=== PATIENT | female | born 1945 | race American Indian/Alaskan Native ===

== ENCOUNTER 2018-11-24 15:10 | Emergency (ER) | payer MEDICARE, MEDICAID ==
[2018-11-24 15:28] VITALS: BP 158/79
--- NOTE | 2018-11-24 17:49 | Emergency Department Report ---
Minor Respiratory - HPI Chief Complaint: Weakness Stated Complaint: SICK Time Seen by Provider: 11/24/18 16:21 Duration: 3 Days Severity: moderate Minor Respiratory: Yes Rhinorrhea, Yes Able to Tolerate Fluids, Yes Cough, No Sore Throat, No Ear Pain, No Sick Contacts, No Hemoptysis, No Chest Pain, No Shortness of Breath, No Fever Other History: Patient states cough is productive of clear sputum. Patient states she also has had some mild body aches. Patient's MAXIMUM TEMPERATURE at home was 100.4. ED Review of Systems ROS: Stated complaint: SICK Other details as noted in HPI Comment: All other systems reviewed and negative ED Past Medical Hx - Past Medical History Hx Hypertension: Yes Hx Diabetes: Yes Hx GERD: Yes Hx Psychiatric Treatment: Yes (depression) Hx COPD: Yes Additional medical history: Bronchitis. Vertigo. hyperlipidemia. osteoarthritis. neuropathy - Surgical History Past Surgical History?: No - Social History Smoking Status: Never Smoker Substance Use Type: None - Medications Home Medications: Home Medications Medication Instructions Recorded Confirmed Last Taken Type AtorvaSTATin [Lipitor] 10 mg PO DAILY 10/12/15 10/12/15 Unknown History Cholecalciferol (Vitamin D3) 2,000 unit PO QDAY 10/12/15 10/12/15 Unknown History [Vitamin D3] Docusate Sodium [Colace] 100 mg PO BID 10/12/15 10/12/15 Unknown History Esomeprazole Magnesium [NexIUM] 20 mg PO BID 10/12/15 10/12/15 Unknown History HYDROcodone/APAP 7.5-325 [[place] 1 each PO Q8HR PRN #10 tablet 10/12/15 Unknown Rx 7.5/325] Lisinopril [Zestril TAB] 40 mg PO QDAY 10/12/15 10/12/15 Unknown History Potassium Chloride 10 meq PO QDAY 10/12/15 10/12/15 Unknown History Sertraline [Zoloft] 50 mg PO QDAY 10/12/15 10/12/15 Unknown History amLODIPine [Norvasc] 10 mg PO DAILY 10/12/15 10/12/15 Unknown History glipiZIDE [glipiZIDE XL] 10 mg PO DAILY 10/12/15 10/12/15 Unknown History hydroCHLOROthiazide [HCTZ] 25 mg PO QDAY 10/12/15 10/12/15 Unknown History raNITIdine HCl [Zantac 300 MG TAB] 300 mg PO QPM 10/12/15 10/12/15 Unknown History ALBUTEROL Inhaler (OR & NICU) 2 puff IH QID PRN #1 inhalation 11/24/18 Unknown Rx [ProAir HFA Inhaler] Azithromycin [Zithromax Z-GHAZAL] 250 mg PO DAILY #6 tablet 11/24/18 Unknown Rx Benzonatate [Tessalon Perles] 100 mg PO Q8HR #10 capsule 11/24/18 Unknown Rx Minor Respiratory Exam - Exam General: Vital signs noted. No distress. Alert and acting appropriately. HEENT: Yes Moist Mucous Membranes, No Pharyngeal Erythema, No Pharyngeal Exudates, No Rhinorrhea, No Conjuctival Injection, No Frontal Tenderness, No Maxillary Tenderness Ear: Neither TM Bulge, Neither TM Erythema, Neither EAC Pain, Neither EAC Discharge Neck: Yes Supple, No Adenopathy Lungs: Yes Good Air Exchange, Yes Ronchi (clears with coughing), No Wheezes, No Stridor, No Cough, No Labored Respirations, No Retractions, No Use of Accessory Muscles, No Other Abnormal Lung Sounds Heart: Yes Regular, No Murmur Abdomen: Yes Normal Bowel Sounds, No Tenderness, No Peritoneal Signs Skin: No Rash, No Edema Neurologic: Alert and oriented, no deficits. Musculoskeletal: Unremarkable. ED Course Vital Signs 11/24/18 15:25 Temperature 98.1 F Pulse Rate 94 H Respiratory 16 Rate Blood Pressure 158/79 O2 Sat by Pulse 95 Oximetry ED Medical Decision Making - Radiology Data Radiology results: image reviewed (CXR wnl except for some bibasilar atelectasis) - Medical Decision Making Because of the patient's smoking history and history of diabetes patient be started on antibiotics and also given Mr. symptomatically. Critical care attestation.: If time is entered above; I have spent that time in minutes in the direct care of this critically ill patient, excluding procedure time. ED Disposition Clinical Impression: Smoking Acute bronchitis Qualifiers: Bronchitis organism: unspecified organism Qualified Code(s): J20.9 - Acute bronchitis, unspecified Disposition: DC-01 TO HOME OR SELFCARE Is pt being admited?: No Does the pt Need Aspirin: No Condition: Stable Instructions: Acute Bronchitis (ED) Referrals: PRIMARY CARE, [Primary Care Provider] - 3-5 Days Time of Disposition: 17:51
--- NOTE | 2018-11-24 18:47 | XRay Report ---
FINAL REPORT EXAM: XR CHEST ROUTINE 2V HISTORY: productive cough TECHNIQUE: 2 view examination of the chest PRIORS: None FINDINGS: Most likely benign calcified granuloma above left CP angle lateral aspect on frontal view. Atherosclerotic change in the thoracic aorta. Degenerative change in the thoracic spine. There is no visible pulmonary consolidation, pleural effusion, or pneumothorax. Cardiac silhouette size is normal without vascular congestion. Small curvilinear scar versus atelectasis in lingula IMPRESSION: Small curvilinear scar versus atelectasis in lingula
== END 2018-11-24 17:59 | disposition home or self-care (01) ==
LOC: ED 15:10
DX: J20.9 Acute bronchitis, unspecified (principal); F17.200 Nicotine dependence, unspecified, uncomplicated; I10 Essential (primary) hypertension; K21.9 Gastro-esophageal reflux disease without esophagitis; J44.9 Chronic obstructive pulmonary disease, unspecified; E11.40 Type 2 diabetes mellitus with diabetic neuropathy, unspecified; E78.5 Hyperlipidemia, unspecified; M19.90 Unspecified osteoarthritis, unspecified site; Z88.1 Allergy status to other antibiotic agents
CPT/HCPCS: 71046; 99283

== ENCOUNTER 2019-08-24 11:06 | Inpatient (IN) | payer MEDICARE ==
--- NOTE | 2019-08-24 11:25 | Event Note ---
ED Screening Note ED Screening Note: substernal CP radiating to the left arm for a week worse at night no SOB +nausea no vomiting dizziness PMHx DM, COPD, GERD, HTN +smoker This initial assessment/diagnostic orders/clinical plan/treatment(s) is/are subject to change based on patients health status, clinical progression and re-assessment by fellow clinical providers in the ED. Further treatment and workup at subsequent clinical providers discretion. Patient/guardian urged not to elope from the ED as their condition may be serious if not clinically assessed and managed. Initial orders include: CP protocol
[2019-08-24 12:05] LABS: Bacteria,Urine 1+ /HPF (Negative); Bilirubin,Urine NEG (Negative); Blood,Urine SM (Negative); Color,Urine Yellow (Yellow); Hyaline Casts,Urine 1 /LPF; Mucus,Urine FEW /HPF; Urobilinogen,Urine < 2.0 mg/dL (<2.0)
[2019-08-24 12:24] LABS: Basophils # (Auto) 0.1 K/mm3 (0.0-0.1); Basophils % (Auto) 0.8 % (0.0-1.8); Eosinophils # (Auto) 0.1 K/mm3 (0.0-0.4); Eosinophils % (Auto) 0.9 % (0.0-4.3); Hematocrit 36.5 % (30.3-42.9); Hemoglobin 12.4 gm/dl (10.1-14.3); Lymphocytes # (Auto) 1.9 K/mm3 (1.2-5.4); Lymphocytes % (Auto) 17.3 % (13.4-35.0); Mean Corpuscular HGB Conc 34 % (30-34); Mean Corpuscular Volume 81 fl (79-97); Monocytes # (Auto) 0.7 K/mm3 (0.0-0.8); Monocytes % (Auto) 6.6 % (0.0-7.3); Platelet Count 259 K/mm3 (140-440); Red Blood Count 4.52 M/mm3 (3.65-5.03); Red Cell Distribution Width 16.3 % (13.2-15.2)
--- NOTE | 2019-08-24 12:29 | XRay Report ---
CHEST 2 VIEWS INDICATION: Chest pain. COMPARISON: 11/24/2018 FINDINGS: Support devices: None. Heart: Within normal limits. Lungs/pleura: No acute air space or interstitial disease. No pneumothorax. Additional findings: None. IMPRESSION: Unremarkable chest films. Signer Name: Brandin Chiang Jr, MD Signed: 08/24/2019 12:24 PM Workstation Name: [id number]
[2019-08-24 12:51] LABS: Alanine Aminotransferase 9 units/L (7-56); Albumin 3.5 g/dL (3.9-5); BUN/Creatinine Ratio 24; Blood Urea Nitrogen 24 mg/dL (7-17); Calcium 9.5 mg/dL (8.4-10.2); Hemolysis Index 8
[2019-08-24] MEDS ORDERED: MORPHINE 4 MG/1 ML INJ IV STA (12:54)
--- NOTE | 2019-08-24 13:04 | Emergency Department Report ---
ED Chest Pain HPI - General Chief Complaint: Chest Pain Stated Complaint: CHESTPAIN/DIZZY Time Seen by Provider: 08/24/19 11:23 Source: patient Mode of arrival: Wheelchair Limitations: No Limitations - History of Present Illness Initial Comments: 73-year-old -Welsh female with a past medical history of Hypertension, depression, hyperlipidemia, diabetes, emphysema presents to emergency department complaining of a 2 week history of mid sternal chest discomfort which occasionally radiates to the left or right chest associated with some recent episodes of shortness of breath and dizziness. She reports no soup was coughing with mucus production over the last few days as well. No fevers, chills, sweats no nausea or vomiting. She reports no chest trauma. Symptoms will worsen when she exerts herself. MD Complaint: chest pain -: Gradual Onset: during rest, during exertion Pain Location: substernal, left chest, right chest Severity scale (0 -10): 10 Quality: tightness, aching Consistency: constant Improves With: nothing Worsens With: exertion, other (she wakes up in the [employer]) Other Symptoms: cough Treatments Prior to Arrival: none - Related Data On Oral Contraceptives: No Home Medications Medication Instructions Recorded Confirmed Last Taken AtorvaSTATin 10 mg PO DAILY 10/12/15 08/24/19 08/24/19 Cholecalciferol (Vitamin D3) 2,000 unit PO QDAY 10/12/15 08/24/19 08/20/19 [Vitamin D3 2,000 UNIT CAP] Docusate Sodium [Colace CAP] 100 mg PO BID 10/12/15 08/24/19 08/23/19 Lisinopril [Zestril TAB] 40 mg PO QDAY 10/12/15 08/24/19 08/24/19 Sertraline [Zoloft] 50 mg PO QDAY 10/12/15 08/24/19 08/23/19 amLODIPine 10 mg PO DAILY 10/12/15 08/24/19 08/24/19 glipiZIDE [glipiZIDE XL] 10 mg PO DAILY 10/12/15 08/24/19 08/24/19 Budesonide/Formoterol Fumarate 10.2 gm IH Q6H 08/24/19 08/24/19 08/23/19 [Symbicort 80-4.5 Mcg Inhaler] Chlorthalidone [Thalitone] 25 mg PO QDAY 08/24/19 08/24/19 08/24/19 Esomeprazole Magnesium [NexIUM] 40 mg PO QDAY 08/24/19 08/24/19 08/23/19 Linagliptin [Tradjenta] 5 mg PO QDAY 08/24/19 08/24/19 08/24/19 Losartan [Cozaar] 100 mg PO QDAY 08/24/19 08/24/19 08/24/19 Previous Rx's Medication Instructions Recorded Last Taken Type ALBUTEROL Inhaler (OR & NICU) 2 puff IH QID PRN #1 inhalation 11/24/18 08/24/19 Rx [ProAir HFA Inhaler] Nicotine [Habitrol] 14 mg TD DAILY #30 patch 08/26/19 Unknown Rx Allergies Allergy/AdvReac Type Severity Reaction Status Date / Time ampicillin AdvReac Itching Verified 10/09/15 19:02 Heart Score - HEART Score History: Moderately suspicious EKG: Non-specific Age: > 65 Risk factors: > 3 risk factors or hx of atherosclerotic disease Troponin: < normal limit HEART Score: 6 ED Review of Systems ROS: Stated complaint: CHESTPAIN/DIZZY Other details as noted in HPI Comment: All other systems reviewed and negative ED Past Medical Hx - Past Medical History Previous Medical History?: Yes Hx Hypertension: Yes Hx Diabetes: Yes Hx GERD: Yes Hx Psychiatric Treatment: Yes (depression) Hx COPD: Yes Additional medical history: Bronchitis. Vertigo. hyperlipidemia. osteoarthritis. neuropathy - Surgical History Past Surgical History?: No - Social History Smoking Status: Current Every Day Smoker Substance Use Type: None - Medications Home Medications: Home Medications Medication Instructions Recorded Confirmed Last Taken Type AtorvaSTATin 10 mg PO DAILY 10/12/15 08/24/19 08/24/19 History Cholecalciferol (Vitamin D3) 2,000 unit PO QDAY 10/12/15 08/24/19 08/20/19 History [Vitamin D3 2,000 UNIT CAP] Docusate Sodium [Colace CAP] 100 mg PO BID 10/12/15 08/24/19 08/23/19 History Lisinopril [Zestril TAB] 40 mg PO QDAY 10/12/15 08/24/19 08/24/19 History Sertraline [Zoloft] 50 mg PO QDAY 10/12/15 08/24/19 08/23/19 History amLODIPine 10 mg PO DAILY 10/12/15 08/24/19 08/24/19 History glipiZIDE [glipiZIDE XL] 10 mg PO DAILY 10/12/15 08/24/19 08/24/19 History ALBUTEROL Inhaler (OR & NICU) 2 puff IH QID PRN #1 inhalation 11/24/18 08/24/19 08/24/19 Rx [ProAir HFA Inhaler] Budesonide/Formoterol Fumarate 10.2 gm IH Q6H 08/24/19 08/24/19 08/23/19 History [Symbicort 80-4.5 Mcg Inhaler] Chlorthalidone [Thalitone] 25 mg PO QDAY 08/24/19 08/24/19 08/24/19 History Esomeprazole Magnesium [NexIUM] 40 mg PO QDAY 08/24/19 08/24/19 08/23/19 History Linagliptin [Tradjenta] 5 mg PO QDAY 08/24/19 08/24/19 08/24/19 History Losartan [Cozaar] 100 mg PO QDAY 08/24/19 08/24/19 08/24/19 History Nicotine [Habitrol] 14 mg TD DAILY #30 patch 08/26/19 Unknown Rx ED Physical Exam - General Limitations: No Limitations General appearance: alert, in no apparent distress - Head Head exam: Present: atraumatic, normocephalic - Eye Eye exam: Present: normal appearance, PERRL, EOMI Pupils: Present: normal accommodation - ENT ENT exam: Present: normal exam, normal orophraynx, mucous membranes moist - Neck Neck exam: Present: normal inspection - Respiratory Respiratory exam: Present: normal lung sounds bilaterally. Absent: respiratory distress, rales, rhonchi, accessory muscle use, decreased breath sounds - Cardiovascular Cardiovascular Exam: Present: regular rate, normal rhythm. Absent: systolic murmur, diastolic murmur, rubs, gallop - GI/Abdominal GI/Abdominal exam: Present: soft, normal bowel sounds. Absent: hypoactive bowel sounds, organomegaly, mass, bruit - Extremities Exam Extremities exam: Present: normal inspection, full ROM - Back Exam Back exam: Present: normal inspection - Neurological Exam Neurological exam: Present: alert, oriented X3, CN II-XII intact, motor sensory deficit - Psychiatric Psychiatric exam: Present: normal affect, normal mood - Skin Skin exam: Present: warm, dry, intact, normal color. Absent: rash ED Course Vital Signs 08/24/19 08/24/19 08/24/19 11:23 12:06 14:29 Temperature 98.0 F Pulse Rate 85 81 68 Respiratory 16 16 20 Rate Blood Pressure 187/87 169/83 Blood Pressure 145/91 [Left] O2 Sat by Pulse 96 96 98 Oximetry 08/24/19 08/24/19 08/24/19 14:30 14:40 14:50 Temperature Pulse Rate 62 72 68 Respiratory 15 23 21 Rate Blood Pressure 169/83 169/83 169/83 Blood Pressure [Left] O2 Sat by Pulse 96 92 97 Oximetry 08/24/19 08/24/19 08/24/19 15:00 15:10 15:20 Temperature Pulse Rate 69 67 72 Respiratory 23 21 16 Rate Blood Pressure 169/83 167/79 167/79 Blood Pressure [Left] O2 Sat by Pulse 96 92 97 Oximetry 08/24/19 08/24/19 08/24/19 15:30 15:40 15:50 Temperature Pulse Rate 69 69 79 Respiratory 13 23 15 Rate Blood Pressure 167/79 167/79 167/79 Blood Pressure [Left] O2 Sat by Pulse 98 96 97 Oximetry 08/24/19 08/24/19 08/24/19 16:04 16:10 16:20 Temperature Pulse Rate 83 85 76 Respiratory 20 16 10 L Rate Blood Pressure 167/79 167/79 167/79 Blood Pressure [Left] O2 Sat by Pulse 89 94 94 Oximetry 08/24/19 08/24/19 08/24/19 16:30 16:40 17:04 Temperature Pulse Rate 74 73 76 Respiratory 15 27 H 29 H Rate Blood Pressure 167/79 167/79 167/79 Blood Pressure [Left] O2 Sat by Pulse 96 97 95 Oximetry 08/24/19 08/24/19 08/24/19 17:10 17:18 17:20 Temperature Pulse Rate 73 76 76 Respiratory 23 16 23 Rate Blood Pressure 167/79 140/82 Blood Pressure 140/82 [Left] O2 Sat by Pulse 95 99 96 Oximetry 08/24/19 08/24/19 08/24/19 17:30 17:40 17:50 Temperature Pulse Rate 74 71 73 Respiratory 25 H 24 17 Rate Blood Pressure 140/82 140/82 140/82 Blood Pressure [Left] O2 Sat by Pulse 96 94 92 Oximetry 08/24/19 08/24/19 08/24/19 18:00 18:10 18:20 Temperature Pulse Rate 76 74 81 Respiratory 26 H 25 H 16 Rate Blood Pressure 140/82 158/83 158/83 Blood Pressure [Left] O2 Sat by Pulse 96 96 98 Oximetry 08/24/19 08/24/19 08/24/19 18:30 18:40 18:50 Temperature Pulse Rate 74 76 Respiratory 21 25 H 19 Rate Blood Pressure 140/82 158/83 158/83 Blood Pressure [Left] O2 Sat by Pulse 93 96 84 Oximetry 08/24/19 08/24/19 08/24/19 19:00 19:10 19:20 Temperature Pulse Rate 89 76 71 Respiratory 14 14 18 Rate Blood Pressure 158/83 158/83 158/83 Blood Pressure [Left] O2 Sat by Pulse 96 97 94 Oximetry 08/24/19 08/24/19 08/24/19 19:30 19:40 19:46 Temperature Pulse Rate 78 73 77 Respiratory 14 26 H 29 H Rate Blood Pressure 158/83 158/83 158/83 Blood Pressure [Left] O2 Sat by Pulse 98 95 95 Oximetry 08/24/19 08/24/19 08/24/19 20:00 20:15 20:16 Temperature Pulse Rate 80 73 80 Respiratory 25 H 17 28 H Rate Blood Pressure 171/72 159/74 Blood Pressure 171/72 [Left] O2 Sat by Pulse 91 96 90 Oximetry 08/24/19 20:30 Temperature Pulse Rate 73 Respiratory 26 H Rate Blood Pressure 159/74 Blood Pressure [Left] O2 Sat by Pulse 94 Oximetry ED Medical Decision Making - Lab Data Result diagrams: 08/24/19 12:14 08/25/19 04:32 Critical care attestation.: If time is entered above; I have spent that time in minutes in the direct care of this critically ill patient, excluding procedure time. ED Disposition Clinical Impression: Chest pain, unspecified Disposition: OP ADMIT IP TO THIS HOSP Is pt being admited?: Yes Does the pt Need Aspirin: No Condition: Stable
--- NOTE | 2019-08-24 16:19 | History and Physical Report ---
History of Present Illness Chief complaint: My chest has been hurting, and I dont feel good, and I get dizzy History of present illness: 73 YO Female with Obesity, HTN, HLD, DM complicated by Neuropathy, GERD, COPD, OA, Depression, Nicotine Dependence, Vertigo presents to ED for evaluation. Pt states that she has experienced Chest pain, Shortness of Breath, and dizziness. Pt states that her pain is 8-10/10, constant, crushing in nature, substernal, localized to the left chest, nonradiating, worsened with exertion, not relieved with rest, radiates to the left shoulder/chest, associated with shortness of breath. Pt acknowledges decreased exercise tolerance, and dypsnea with exertion. Pt also reports feeling dizzy and lightheadedness over the past 2 days. Pt transported to [facility] via private vehicle. Pt seen and evaluated in ED and found to have Angina, as well as symptoms consistent with Diastolic CHF. Pt admitted to telemetry. Cardiology consulted in ED. No prior admission for review. All listed medication reconciled at time of admission. Past History Past Medical History: arthritis, COPD, diabetes, GERD, hypertension, hyperlipidemia, other (Vertigo) Past Surgical History: No surgical history, Other (reviewed) Social history: smoking Family history: diabetes, hypertension Medications and Allergies Allergies Allergy/AdvReac Type Severity Reaction Status Date / Time ampicillin AdvReac Itching Verified 10/09/15 19:02 Home Medications Medication Instructions Recorded Confirmed Last Taken Type AtorvaSTATin [Lipitor] 10 mg PO DAILY 10/12/15 08/24/19 08/24/19 History Cholecalciferol (Vitamin D3) 2,000 unit PO QDAY 10/12/15 08/24/19 08/20/19 History [Vitamin D3] Docusate Sodium [Colace] 100 mg PO BID 10/12/15 08/24/19 08/23/19 History Esomeprazole Magnesium [NexIUM] 20 mg PO BID 10/12/15 08/24/19 08/24/19 History Lisinopril [Zestril TAB] 40 mg PO QDAY 10/12/15 08/24/19 08/24/19 History Sertraline [Zoloft] 50 mg PO QDAY 10/12/15 08/24/19 08/23/19 History amLODIPine [Norvasc] 10 mg PO DAILY 10/12/15 08/24/19 08/24/19 History glipiZIDE [glipiZIDE XL] 10 mg PO DAILY 10/12/15 08/24/19 08/24/19 History ALBUTEROL Inhaler (OR & NICU) 2 puff IH QID PRN #1 inhalation 11/24/18 08/24/19 08/24/19 Rx [ProAir HFA Inhaler] Budesonide/Formoterol Fumarate 10.2 gm IH Q6H 08/24/19 08/24/19 08/23/19 History [Symbicort 80-4.5 Mcg Inhaler] Chlorthalidone [Thalitone] 25 mg PO QDAY 08/24/19 08/24/19 08/24/19 History Esomeprazole Magnesium [NexIUM] 40 mg PO QDAY 08/24/19 08/24/19 08/23/19 History Linagliptin [Tradjenta] 5 mg PO QDAY 08/24/19 08/24/19 08/24/19 History Losartan [Cozaar] 100 mg PO QDAY 08/24/19 08/24/19 08/24/19 History Review of Systems Constitutional: no weight loss, no weight gain, no fever, no chills Ears, nose, mouth and throat: no ear pain, no ear discharge, no tinnitis, no decreased hearing, no nose pain, no nasal congestion Breasts: no change in shape, no swelling, no mass Cardiovascular: chest pain, dyspnea on exertion, decreased exercise tolerance, no rapid/irregular heart beat, no edema, no lightheadedness Respiratory: no cough, no cough with sputum, no excessive sputum, no hemoptysis, no shortness of breath, no pleurisy Gastrointestinal: no nausea, no vomiting, no diarrhea, no constipation, no change in bowel habits Genitourinary Female: no pelvic pain, no flank pain, no urinary frequency, no urgency Rectal: no pain, no incontinence, no bleeding Musculoskeletal: no neck stiffness, no neck pain, no shooting arm pain, no shooting leg pain Integumentary: no rash, no pruritis, no redness, no sores, no wounds, no jaundice Neurological: no transient paralysis, no weakness, no parathesias, no tingling, no syncope, no tremors Psychiatric: no anxiety, no memory loss, no change in sleep habits, no hypersom robert, no change in appetite, no suicidal ideation Endocrine: no cold intolerance, no heat intolerance, no polyphagia, no excessive thirst, no polyuria, no nocturia, no excessive sweating Hematologic/Lymphatic: no easy bruising, no easy bleeding, no lymphadenopathy Allergic/Immunologic: no urticaria, no allergic rhinitis, no wheezing, no anaphylaxis Exam - Constitutional Vitals: Temp Pulse Resp BP Pulse Ox 98.0 F 81 16 145/91 96 08/24/19 11:23 08/24/19 12:06 08/24/19 12:06 08/24/19 12:06 08/24/19 12:06 General appearance: Present: mild distress, obese - EENT Eyes: Present: PERRL ENT: hearing intact, clear oral mucosa - Neck Neck: Present: supple, normal ROM - Respiratory Respiratory effort: normal Respiratory: bilateral: CTA - Cardiovascular Heart Sounds: Present: S1 & S2. Absent: rub, click - Extremities Extremities: pulses symmetrical, No edema Peripheral Pulses: within normal limits - Abdominal General gastrointestinal: Present: soft, non-tender, non-distended, normal bowel sounds Female genitourinary: Present: normal - Integumentary Integumentary: Present: clear, warm, dry - Musculoskeletal Musculoskeletal: gait normal, strength equal bilaterally - Psychiatric Psychiatric: appropriate mood/affect, intact judgment & insight - Neurologic Neurologic: CNII-XII intact, moves all extremities Results - Labs CBC & Chem 7: 08/24/19 12:14 08/24/19 12:14 Labs: Abnormal lab results 08/24/19 08/24/19 Range/Units 12:14 12:14 RDW 16.3 H (13.2-15.2) % Seg Neutrophils % 74.4 H (40.0-70.0) % Seg Neutrophils # 8.0 H (1.8-7.7) K/mm3 BUN 24 H (7-17) mg/dL Glucose 137 H (65-100) mg/dL Albumin 3.5 L (3.9-5) g/dL Assessment and Plan - Patient Problems (1) Diastolic CHF Current Visit: Yes Status: Acute Qualifiers: Heart failure chronicity: acute on chronic Qualified Code(s): I50.33 - Acute on chronic diastolic (congestive) heart failure Plan to address problem: Admit to telemetry, strict I/O, daily weight, BNP, pulse oximetry, supplemental oxygen, blood pressure control, monitor uop q shift, (2) Angina at rest Current Visit: Yes Status: Acute Plan to address problem: Serial cardiac enzymes,ekg, telemetry, cardiology consulted in ED, morphine, supplemental oxygen, nitro, aspirin (3) Obesity hypoventilation syndrome Current Visit: Yes Status: Acute Plan to address problem: supplemental oxygen, nebulizer therapy, NIPPV as clinically indicated, pulse oximetry, CTA chest to evaluated for PE. Pending at time of admission. (4) HTN (hypertension) Current Visit: Yes Status: Acute Qualifiers: Hypertension type: essential hypertension Qualified Code(s): I10 - Essential (primary) hypertension Plan to address problem: Monitor bp q shift, continue medical management. (5) GERD (gastroesophageal reflux disease) Current Visit: Yes Status: Acute Qualifiers: Esophagitis presence: without esophagitis Qualified Code(s): K21.9 - Gastro-esophageal reflux disease without esophagitis Plan to address problem: PPI therapy, (6) HLD (hyperlipidemia) Current Visit: Yes Status: Acute Qualifiers: Hyperlipidemia type: mixed hyperlipidemia Qualified Code(s): E78.2 - Mixed hyperlipidemia Plan to address problem: lowfat, low cholesterol diet, statin therapy as indicated. (7) Nicotine dependence Current Visit: Yes Status: Acute Qualifiers: Substance use status: in withdrawal Plan to address problem: smoking cessation counseling +15 min, supportive care (8) COPD (chronic obstructive pulmonary disease) Current Visit: Yes Status: Acute Qualifiers: Chronic bronchitis type: mixed simple and mucopurulent Plan to address problem: supplemental oxygen, nebulizer therapy, supportive care, (9) DVT prophylaxis Current Visit: Yes Status: Acute Plan to address problem: SCD to BLE while in bed, Pt ambulatory
--- NOTE | 2019-08-24 17:18 | Cat Scan Report ---
CT head without contrast. CLINICAL HISTORY: Dizziness FINDINGS: No previous exams available for comparison. There is extensive cerebral white matter diseas e most consistent with microvascular angiopathy at. There is mild cerebral atrophy. The ventricular s ystem is correspondingly appropriate in size and configuration. There is no clear CT evidence of acut e intracranial hemorrhage or significant mass effect. The visualized paranasal sinuses are clear. All CT scans at this location are performed using the CT dose reduction for [employer] by means of automated exposure control. IMPRESSION: There is extensive microvascular angiopathy without CT evidence of acute intracranial hemorrhage. Signer Name: Roscoe Murguia MD Signed: 08/24/2019 5:13 PM Workstation Name: [id number]
[2019-08-24] MEDS ORDERED: ONDANSETRON 4 MG/2 ML INJ IV PRN (18:08)
[2019-08-24] MEDS ORDERED: ALBUTEROL 2.5 MG/3 ML NEBU IH PRN (18:08)
[2019-08-24] MEDS ORDERED: NITROGLYCERIN 0.4 MG TAB SUBL SL PRN (18:11)
[2019-08-24] MEDS ORDERED: ASPIRIN 81 MG TAB CHEW PO STA (18:11)
[2019-08-24] MEDS ORDERED: ASPIRIN 81 MG TAB CHEW ONE ×2 (19:21→19:25)
[2019-08-24 20:15] LABS: Chol/HDL Ratio 2.23 %
[2019-08-24] MEDS ORDERED: ESOMEPRAZOLE MAGNESIUM 20 MG PO SCH (22:00)
[2019-08-24] MEDS: FAMOTIDINE 10 MG TAB PO SCH (22:24)
[2019-08-24] MEDS: DOCUSATE SODIUM 100 MG CAP PO SCH (22:24)
[2019-08-24] MEDS: ACETAMINOPHEN 325 MG TAB PO PRN (22:24)
[2019-08-25 05:12] LABS: Albumin 3.1 g/dL (3.9-5); Calcium 9.2 mg/dL (8.4-10.2)
[2019-08-25] MEDS ORDERED: REGADENOSON 0.4 MG/5 ML INJ IV ONE ×2 (08:00→08:05)
--- NOTE | 2019-08-25 09:28 | Progress Note ---
Assessment and Plan Assessment and plan: -- Diastolic CHF Current Visit: Yes Status: Acute heart failure medications strict I/O, daily weight, B supplemental oxygen, Low sodium diet ECHOif needed --Angina at rest Current Visit: Yes Status: Acute Serial cardiac enzymes,ekg, telemetry, cardiology consulted in ED, morphine, supplemental oxygen, nitro, aspirin -- Obesity hypoventilation syndrome Current Visit: Yes Status: Acute supplemental oxygen, nebulizer therapy, NIPPV as clinically indicated, pulse oximetry, CTA chest to evaluated for PE. Pending at time of admission. --HTN (hypertension) Current Visit: Yes Status: Acute Monitor bp q shift, continue medical management. --GERD (gastroesophageal reflux disease) Current Visit: Yes Status: Acute PPI therapy, HLD (hyperlipidemia) Current Visit: Yes Status: Acute lowfat, low cholesterol diet, statin therapy as indicated. --Nicotine dependence Current Visit: Yes Status: Acute smoking cessation counseling +15 min, supportive care -- COPD (chronic obstructive pulmonary disease) Current Visit: Yes Status: Acute supplemental oxygen, nebulizer therapy, supportive care, -- DVT prophylaxis Current Visit: Yes Status: Acute SCD to BLE while in bed, Pt ambulatory Stable at discharge History Interval history: Patient seen and examined medical records reviewed No new events reported by nursing Patient scheduled for stress test, CTA chest to rule out PE Continues to have intermittent chest pain Vital signs noted Hospitalist Physical - Constitutional Vitals: Temp Pulse Resp BP Pulse Ox 98.0 F 70 18 138/73 92 08/25/19 04:23 08/25/19 04:23 08/25/19 04:23 08/25/19 04:23 08/25/19 04:23 General appearance: Present: mild distress, obese - EENT Eyes: Present: PERRL, EOM intact - Neck Neck: Present: supple, normal ROM - Respiratory Respiratory effort: normal Respiratory: bilateral: diminished, negative: rales, rhonchi - Cardiovascular Rhythm: regular Heart Sounds: Present: S1 & S2 - Extremities Extremities: no ischemia, pulses intact - Abdominal General gastrointestinal: soft, non-tender, non-distended, normal bowel sounds - Integumentary Integumentary: Present: clear, warm - Psychiatric Psychiatric: appropriate mood/affect, cooperative - Neurologic Neurologic: moves all extremities Results - Labs CBC & Chem 7: 08/24/19 12:14 08/25/19 04:32 Labs: Laboratory Last Values WBC 10.7 K/mm3 (4.5-11.0) 08/24/19 12:14 RBC 4.52 M/mm3 (3.65-5.03) 08/24/19 12:14 Hgb 12.4 gm/dl (10.1-14.3) 08/24/19 12:14 Hct 36.5 % (30.3-42.9) 08/24/19 12:14 MCV 81 fl (79-97) 08/24/19 12:14 MCH 28 pg (28-32) 08/24/19 12:14 MCHC 34 % (30-34) 08/24/19 12:14 RDW 16.3 % (13.2-15.2) H 08/24/19 12:14 Plt Count 259 K/mm3 (140-440) 08/24/19 12:14 Lymph % (Auto) 17.3 % (13.4-35.0) 08/24/19 12:14 [place] % (Auto) 6.6 % (0.0-7.3) 08/24/19 12:14 Eos % (Auto) 0.9 % (0.0-4.3) 08/24/19 12:14 Baso % (Auto) 0.8 % (0.0-1.8) 08/24/19 12:14 Lymph # 1.9 K/mm3 (1.2-5.4) 08/24/19 12:14 [place] # 0.7 K/mm3 (0.0-0.8) 08/24/19 12:14 Eos # 0.1 K/mm3 (0.0-0.4) 08/24/19 12:14 Baso # 0.1 K/mm3 (0.0-0.1) 08/24/19 12:14 Seg Neutrophils % 74.4 % (40.0-70.0) H 08/24/19 12:14 Seg Neutrophils # 8.0 K/mm3 (1.8-7.7) H 08/24/19 12:14 D-Dimer 1098.79 ng/mlDDU (0-234) H 08/24/19 16:19 Sodium 138 mmol/L (137-145) 08/25/19 04:32 Potassium 4.2 mmol/L (3.6-5.0) 08/25/19 04:32 Chloride 101.1 mmol/L (98-107) 08/25/19 04:32 Carbon Dioxide 24 mmol/L (22-30) 08/25/19 04:32 Anion Gap 17 mmol/L 08/25/19 04:32 BUN 25 mg/dL (7-17) H 08/25/19 04:32 Creatinine 1.1 mg/dL (0.7-1.2) 08/25/19 04:32 Estimated GFR 59 ml/min 08/25/19 04:32 BUN/Creatinine Ratio 23 % 08/25/19 04:32 Glucose 168 mg/dL (65-100) H 08/25/19 04:32 POC Glucose 195 (70-105) H 08/24/19 21:25 Calcium 9.2 mg/dL (8.4-10.2) 08/25/19 04:32 Magnesium 1.90 mg/dL (1.7-2.3) 08/24/19 18:25 Total Bilirubin 0.20 mg/dL (0.1-1.2) 08/25/19 04:32 AST 16 units/L (5-40) 08/25/19 04:32 ALT 9 units/L (7-56) 08/25/19 04:32 Alkaline Phosphatase 78 units/L (35-129) 08/25/19 04:32 Troponin T < 0.010 ng/mL (0.00-0.029) 08/25/19 00:30 NT-Pro-B Natriuret Pep 311.0 pg/mL (0-900) 08/24/19 14:17 Total Protein 6.6 g/dL (6.3-8.2) 08/25/19 04:32 Albumin 3.1 g/dL (3.9-5) L 08/25/19 04:32 Albumin/Globulin Ratio 0.9 % 08/25/19 04:32 Triglycerides 101 mg/dL (2-149) 08/24/19 18:25 Cholesterol 150 mg/dL (50-199) 08/24/19 18:25 LDL Cholesterol Direct 70 mg/dL (50-130) 08/24/19 18:25 HDL Cholesterol 67 mg/dL (40-59) H 08/24/19 18:25 Cholesterol/HDL Ratio 2.23 % 08/24/19 18:25 Lipase 51 units/L (13-60) 08/24/19 12:14 Urine Color Yellow (Yellow) 08/24/19 11:50 Urine Turbidity Clear (Clear) 08/24/19 11:50 Urine pH 5.0 (5.0-7.0) 08/24/19 11:50 Ur Specific [place] 1.010 (1.003-1.030) 08/24/19 11:50 Urine Protein 100 mg/dl mg/dL (Negative) 08/24/19 11:50 Urine Glucose (UA) Neg mg/dL (Negative) 08/24/19 11:50 Urine Ketones Neg mg/dL (Negative) 08/24/19 11:50 Urine Blood Sm (Negative) 08/24/19 11:50 Urine Nitrite Neg (Negative) 08/24/19 11:50 Urine Bilirubin Neg (Negative) 08/24/19 11:50 Urine Urobilinogen < 2.0 mg/dL (<2.0) 08/24/19 11:50 Ur Leukocyte Esterase Neg (Negative) 08/24/19 11:50 Urine WBC (Auto) 1.0 /HPF (0.0-6.0) 08/24/19 11:50 Urine RBC (Auto) 2.0 /HPF (0.0-6.0) 08/24/19 11:50 U Epithel Cells (Auto) < 1.0 /HPF (0-13.0) 08/24/19 11:50 Urine Bacteria (Auto) 1+ /HPF (Negative) 08/24/19 11:50 Hyaline Casts 1 /LPF 08/24/19 11:50 Urine Mucus Few /HPF 08/24/19 11:50 Active Medications - Current Medications Current Medications: Generic Name Dose Route Start Last Admin Trade Name Freq PRN Reason Stop Dose Admin Acetaminophen 650 mg 08/24/19 18:08 08/24/19 22:24 Tylenol PO 650 mg Q4H PRN Administration Pain MILD(1-3)/Fever >100.5/TRINIDAD Albuterol 2.5 mg 08/24/19 18:08 Proventil IH Q4HRT PRN Shortness Of Breath Amlodipine Besylate 10 mg 08/25/19 10:00 Norvasc PO DAILY [facility] Atorvastatin Calcium 40 mg 08/24/19 22:00 08/24/19 22:24 Lipitor PO Not Given [facility] Chlorthalidone 25 mg 08/25/19 10:00 Thalitone PO QDAY [facility] Cholecalciferol 2,000 unit 08/25/19 10:00 Vitamin D3 PO DAILY [facility] Docusate Sodium 100 mg 08/24/19 22:00 08/24/19 22:24 Colace PO 100 mg BID [facility] Administration Famotidine 10 mg 08/24/19 22:00 08/24/19 22:24 Pepcid PO 10 mg BID [facility] Administration Lisinopril 40 mg 08/25/19 10:00 Zestril PO QDAY [facility] Losartan Potassium 100 mg 08/25/19 10:00 Cozaar PO QDAY [facility] Nitroglycerin 0.4 mg 08/24/19 18:11 Nitrostat SL Q5M PRN Chest Pain Ondansetron HCl 4 mg 08/24/19 18:08 Zofran IV Q8H PRN Nausea And Vomiting Pantoprazole Sodium 40 mg 08/25/19 10:00 Protonix PO DAILY [facility] Sertraline HCl 50 mg 08/25/19 10:00 Zoloft PO QDAY [facility] Sodium Chloride 10 ml 08/24/19 22:00 08/24/19 22:25 Sodium Chloride Flush Syringe 10 Ml IV 10 ml BID [facility] Administration Sodium Chloride 10 ml 08/24/19 18:08 Sodium Chloride Flush Syringe 10 Ml IV PRN PRN LINE FLUSH Sodium Chloride 10 ml 08/24/19 18:11 Sodium Chloride Flush Syringe 10 Ml IV PRN PRN LINE FLUSH
[2019-08-25] MEDS ORDERED: NON-FORMULARY EACH (Cholecalciferol (Vitamin D3) [Vitamin D3 2,000 Unit Cap] 2,000 UNIT) PO SCH (10:00)
[2019-08-25] MEDS ORDERED: NON-FORMULARY EACH (Esomeprazole Magnesium [Nexium] 40 MG) PO SCH (10:00)
[2019-08-25] MEDS ORDERED: NON-FORMULARY EACH (Losartan [Cozaar] 100 MG) PO SCH (10:00)
--- NOTE | 2019-08-25 10:23 | Consultation ---
History of Present Illness Consult date: 08/25/19 Consult reason: chest pain History of present illness: Seen in stress lab Impression Atypical Chest pain for one month HTN HLD DM Cigarette smoker Plan Lexiscan nuclear stress completed, normal perfusion no ischemia EF 67% No further CV w/u, suggest noncardiac eval at this time Past History Past Medical History: arthritis, COPD, diabetes, GERD, hypertension, hyperlipidemia, other (Vertigo) Past Surgical History: No surgical history, Other (reviewed) Social history: smoking Family history: diabetes, hypertension Medications and Allergies Allergies Allergy/AdvReac Type Severity Reaction Status Date / Time ampicillin AdvReac Itching Verified 10/09/15 19:02 Home Medications Medication Instructions Recorded Confirmed Last Taken Type AtorvaSTATin [Lipitor] 10 mg PO DAILY 10/12/15 08/24/19 08/24/19 History Cholecalciferol (Vitamin D3) 2,000 unit PO QDAY 10/12/15 08/24/19 08/20/19 History [Vitamin D3] Docusate Sodium [Colace] 100 mg PO BID 10/12/15 08/24/19 08/23/19 History Esomeprazole Magnesium [NexIUM] 20 mg PO BID 10/12/15 08/24/19 08/24/19 History Lisinopril [Zestril TAB] 40 mg PO QDAY 10/12/15 08/24/19 08/24/19 History Sertraline [Zoloft] 50 mg PO QDAY 10/12/15 08/24/19 08/23/19 History amLODIPine [Norvasc] 10 mg PO DAILY 10/12/15 08/24/19 08/24/19 History glipiZIDE [glipiZIDE XL] 10 mg PO DAILY 10/12/15 08/24/19 08/24/19 History ALBUTEROL Inhaler (OR & NICU) 2 puff IH QID PRN #1 inhalation 11/24/18 08/24/19 08/24/19 Rx [ProAir HFA Inhaler] Budesonide/Formoterol Fumarate 10.2 gm IH Q6H 08/24/19 08/24/19 08/23/19 History [Symbicort 80-4.5 Mcg Inhaler] Chlorthalidone [Thalitone] 25 mg PO QDAY 08/24/19 08/24/19 08/24/19 History Esomeprazole Magnesium [NexIUM] 40 mg PO QDAY 08/24/19 08/24/19 08/23/19 History Linagliptin [Tradjenta] 5 mg PO QDAY 08/24/19 08/24/19 08/24/19 History Losartan [Cozaar] 100 mg PO QDAY 08/24/19 08/24/19 08/24/19 History Active Meds: Active Medications Acetaminophen (Tylenol) 650 mg PO Q4H PRN PRN Reason: Pain MILD(1-3)/Fever >100.5/TRINIDAD Last Admin: 08/24/19 22:24 Dose: 650 mg Documented by: Albuterol (Proventil) 2.5 mg IH Q4HRT PRN PRN Reason: Shortness Of Breath Amlodipine Besylate (Norvasc) 10 mg PO DAILY [facility] Atorvastatin Calcium (Lipitor) 40 mg PO QHS [facility] Last Admin: 08/24/19 22:24 Dose: Not Given Documented by: Chlorthalidone (Thalitone) 25 mg PO QDAY [facility] Cholecalciferol (Vitamin D3) 2,000 unit PO DAILY [facility] Docusate Sodium (Colace) 100 mg PO BID [facility] Last Admin: 08/24/19 22:24 Dose: 100 mg Documented by: Famotidine (Pepcid) 10 mg PO BID [facility] Last Admin: 08/24/19 22:24 Dose: 10 mg Documented by: Lisinopril (Zestril) 40 mg PO QDAY [facility] Losartan Potassium (Cozaar) 100 mg PO QDAY [facility] Nitroglycerin (Nitrostat) 0.4 mg SL Q5M PRN PRN Reason: Chest Pain Ondansetron HCl (Zofran) 4 mg IV Q8H PRN PRN Reason: Nausea And Vomiting Pantoprazole Sodium (Protonix) 40 mg PO DAILY [facility] Sertraline HCl (Zoloft) 50 mg PO QDAY [facility] Sodium Chloride (Sodium Chloride Flush Syringe 10 Ml) 10 ml IV BID [facility] Last Admin: 08/24/19 22:25 Dose: 10 ml Documented by: Sodium Chloride (Sodium Chloride Flush Syringe 10 Ml) 10 ml IV PRN PRN PRN Reason: LINE FLUSH Sodium Chloride (Sodium Chloride Flush Syringe 10 Ml) 10 ml IV PRN PRN PRN Reason: LINE FLUSH Physical Examination Vital Signs Temp Pulse Resp BP Pulse Ox 98.0 F 85 16 187/87 96 08/24/19 11:23 08/24/19 11:23 08/24/19 11:23 08/24/19 11:23 08/24/19 11:23 General appearance: no acute distress HEENT: Positive: PERRL Neck: Positive: neck supple, trachea midline Cardiac: Positive: Reg Rate and Rhythm, S1/S2 Lungs: Positive: Normal Exam, clear to auscultation Neuro: Positive: Grossly Intact Abdomen: Positive: Soft Extremities: Absent: edema Results 08/24/19 12:14 08/25/19 04:32 Cardiac Enzymes 08/24/19 08/25/19 Range/Units 12:14 04:32 AST 13 16 (5-40) units/L Lipids 08/24/19 Range/Units 18:25 Triglycerides 101 (2-149) mg/dL Cholesterol 150 (50-199) mg/dL HDL Cholesterol 67 H (40-59) mg/dL Cholesterol/HDL Ratio 2.23 % CBC 08/24/19 Range/Units 12:14 WBC 10.7 (4.5-11.0) K/mm3 RBC 4.52 (3.65-5.03) M/mm3 Hgb 12.4 (10.1-14.3) gm/dl Hct 36.5 (30.3-42.9) % Plt Count 259 (140-440) K/mm3 Lymph # 1.9 (1.2-5.4) K/mm3 [place] # 0.7 (0.0-0.8) K/mm3 Eos # 0.1 (0.0-0.4) K/mm3 Baso # 0.1 (0.0-0.1) K/mm3 Comprehensive Metabolic Panel 08/24/19 08/25/19 Range/Units 12:14 04:32 Sodium 139 138 (137-145) mmol/L Potassium 3.9 4.2 (3.6-5.0) mmol/L Chloride 100.5 101.1 (98-107) mmol/L Carbon Dioxide 23 24 (22-30) mmol/L BUN 24 H 25 H (7-17) mg/dL Creatinine 1.0 1.1 (0.7-1.2) mg/dL Glucose 137 H 168 H (65-100) mg/dL Calcium 9.5 9.2 (8.4-10.2) mg/dL AST 13 16 (5-40) units/L ALT 9 9 (7-56) units/L Alkaline Phosphatase 80 78 (35-129) units/L Total Protein 7.7 6.6 (6.3-8.2) g/dL Albumin 3.5 L 3.1 L (3.9-5) g/dL
--- NOTE | 2019-08-25 11:58 | Cat Scan Report ---
CTA CHEST WITH IV CONTRAST INDICATION: dypsnea/dizzy. TECHNIQUE: Axial CT images were obtained through the chest after injection of IV contrast. 3 plane MIP reconstru ctions were produced. All CT scans at this location are performed using CT dose reduction for ALARA b y means of automated exposure control. COMPARISON: None available. FINDINGS: PULMONARY ARTERIES: No pulmonary emboli. THORACIC AORTA: No acute abnormality. HEART: Normal. CORONARY ARTERIES: No significant calcification. PLEURA: No pleural effusion. No pneumothorax. LYMPH NODES: No significant adenopathy. Calcified left perihilar granulomas. LUNGS: Solid 5 mm right lower lobe pulmonary nodule series 2 image 96. Calcified left lower lobe gran uloma. ADDITIONAL FINDINGS: None. UPPER ABDOMEN: No acute findings. SKELETAL STRUCTURES: Moderate degenerative changes thoracic spine IMPRESSION: 1. No CT evidence for pulmonary embolism. 2. No acute findings. 3. Incidental solid 5 mm right lower lobe pulmonary nodule. 4. Prior granulomatous disease INCIDENTAL PULMONARY NODULE RECOMMENDATIONS Solid Nodule size <6 mm -- Single or Multiple - Low Risk Patient: No routine follow-up - High Risk Patient: Optional CT at 12 months Note These recommendations do not apply to lung cancer screening, patients with immunosuppression, o r patients with known primary cancer. Note Newly detected indeterminate nodule in persons 35 years of age or older. Persons under the age of 35 should not receive follow-up unless there is a known primary cancer. Low Risk Patient -- minimal or absent history of smoking and of other known risk factors. High Risk Patient -- history of smoking or of other known risk factors. Nodule dimensions are average of long and short axes, rounded to the nearest millimeter. Based on 2017 Fleischner Society Guidelines found in Radiology 2017 284:228-243. https://doi.[email or web address] 148/radiol.[email or web address] Signer Name: Arturo Ledesma MD Signed: 08/25/2019 11:53 AM Workstation Name: [id number]
[2019-08-25] MEDS: LOSARTAN 50 MG TAB PO SCH (13:52)
[2019-08-25] MEDS: FAMOTIDINE 10 MG TAB PO SCH ×2 (13:53→21:03)
[2019-08-25] MEDS: PANTOPRAZOLE 40 MG TAB PO SCH (13:53)
[2019-08-25] MEDS: LISINOPRIL 40 MG TAB PO SCH (13:53)
[2019-08-25] MEDS: CHOLECALCIFEROL (VIT D3) 1000 UNIT TAB PO SCH (13:53)
[2019-08-25] MEDS: DOCUSATE SODIUM 100 MG CAP PO SCH ×2 (13:54→21:03)
[2019-08-25] MEDS: amLODIPine 10 MG TAB PO SCH (13:54)
[2019-08-25] MEDS: SERTRALINE 50 MG TAB PO SCH (13:54)
[2019-08-25] MEDS: CHLORTHALIDONE 25 MG TAB PO SCH (16:43)
[2019-08-25] MEDS: ACETAMINOPHEN 325 MG TAB PO PRN (16:48)
--- NOTE | 2019-08-26 10:19 | Vascular Lab Report ---
DUPLEX DOPPLER LOWER EXTREMITY VEINS, BILATERAL INDICATION: Elevated d dimers.evaluate for DVT. TECHNIQUE: Duplex doppler imaging was performed through the veins of both lower extremities using venous roseline mariama and other maneuvers. COMPARISON: None available. FINDINGS: Right Common Femoral vein: Negative. Right Femoral vein: Negative. Right Popliteal vein: Negative. Right Calf veins: Negative. Left Common Femoral vein: Negative. Left Femoral vein: Negative. Left Popliteal vein: Negative. Left Calf veins: Negative. Additional findings: None. IMPRESSION: 1. No sonographic evidence for DVT in either lower extremity. Signer Name: Arturo Ledesma MD Signed: 08/26/2019 10:14 AM Workstation Name: [id number]
[2019-08-26] MEDS: LOSARTAN 50 MG TAB PO SCH (10:34)
[2019-08-26] MEDS: DOCUSATE SODIUM 100 MG CAP PO SCH (10:34)
[2019-08-26] MEDS: FAMOTIDINE 10 MG TAB PO SCH (10:34)
[2019-08-26] MEDS: CHOLECALCIFEROL (VIT D3) 1000 UNIT TAB PO SCH (10:34)
[2019-08-26] MEDS: amLODIPine 10 MG TAB PO SCH (10:35)
[2019-08-26] MEDS: LISINOPRIL 40 MG TAB PO SCH (10:35)
[2019-08-26] MEDS: PANTOPRAZOLE 40 MG TAB PO SCH (10:40)
[2019-08-26] MEDS: SERTRALINE 50 MG TAB PO SCH (10:40)
[2019-08-26 11:55] VITALS: BP 165/81
[2019-08-26] MEDS: CHLORTHALIDONE 25 MG TAB PO SCH (12:07)
--- NOTE | 2019-08-26 14:08 | Discharge Summary ---
Providers - Providers Date of Admission: 08/24/19 18:08 Date of discharge: 08/26/19 Attending physician: MIKEY LOPEZ 08/24/19 Consult to Cardiac Rehabilitation [CONS] Routine Reason For Exam: Phase I 08/24/19 18:11 Consult to Cardiology [CONS] Routine Consulting Provider: CONRAD CHRISTIANSON Reason For Exam: angina/chf Primary care physician: BELGICA WALTER Hospitalization Reason for admission: Atypical chest pain Condition: Stable Pertinent studies: CXR CT head CTA chest:No PE,5mm incidental lung nodule[F/U PMD periodically] Lower extremity venous Doppler Stress test:No ischemia,normal EF Echocardiogram Hospital course: 73 YO Female with Obesity, HTN, HLD, DM complicated by Neuropathy, GERD, COPD, OA, Depression, Nicotine Dependence, Vertigo presents to ED for evaluation. Pt states that she has experienced Chest pain, Shortness of Breath, and dizziness. Pt states that her pain is 8-10/10, constant, crushing in nature, substernal, localized to the left chest, nonradiating, worsened with exertion, not relieved with rest, radiates to the left shoulder/chest, associated with shortness of breath. Patient was evaluated by cardiology,stress test was negative,CTA neg for PE. Patient's symptoms improved and today ptient is stable for discharge,Clearedby specialists. Stable at discharge -- Diastolic CHF Current Visit: Yes Status: Acute heart failure medications strict I/O, daily weight, B supplemental oxygen, Low sodium diet ECHOif needed --Angina at rest Current Visit: Yes Status: Acute Serial cardiac enzymes,ekg, telemetry, cardiology consulted in ED, morphine, supplemental oxygen, nitro, aspirin -- Obesity hypoventilation syndrome Current Visit: Yes Status: Acute supplemental oxygen, nebulizer therapy, NIPPV as clinically indicated, pulse oximetry, CTA chest to evaluated for PE. Pending at time of admission. --HTN (hypertension) Current Visit: Yes Status: Acute Monitor bp q shift, continue medical management. --GERD (gastroesophageal reflux disease) Current Visit: Yes Status: Acute PPI therapy, HLD (hyperlipidemia) Current Visit: Yes Status: Acute lowfat, low cholesterol diet, statin therapy as indicated. --Nicotine dependence Current Visit: Yes Status: Acute smoking cessation counseling +15 min, supportive care -- COPD (chronic obstructive pulmonary disease) Current Visit: Yes Status: Acute supplemental oxygen, nebulizer therapy, supportive care, -- DVT prophylaxis Current Visit: Yes Status: Acute SCD to BLE while in bed, Pt ambulatory Disposition: DC-01 TO HOME OR SELFCARE Time spent for discharge: 32 min Core Measure Documentation - Palliative Care Palliative Care/ Comfort Measures: Not Applicable - Core Measures Any of the following diagnoses?: none Exam - Constitutional Vitals: Temp Pulse Resp BP Pulse Ox 98.0 F 76 18 165/81 100 08/26/19 11:51 08/26/19 11:51 08/26/19 11:51 08/26/19 11:51 08/26/19 11:51 General appearance: Present: no acute distress, well-nourished, obese - EENT Eyes: Present: PERRL, EOM intact - Neck Neck: Present: supple, normal ROM - Respiratory Respiratory effort: normal Respiratory: bilateral: diminished, negative: rales, rhonchi, wheezing - Cardiovascular Rhythm: regular Heart Sounds: Present: S1 & S2 - Extremities Extremities: no ischemia, No edema - Abdominal General gastrointestinal: Present: soft, non-tender, non-distended, normal bowel sounds - Integumentary Integumentary: Present: clear, warm - Musculoskeletal Musculoskeletal: strength equal bilaterally - Psychiatric Psychiatric: appropriate mood/affect, cooperative - Neurologic Neurologic: CNII-XII intact, moves all extremities Plan Activity: no restrictions Diet: other (cardiac diet) Special Instructions: smoking cessation Additional Instructions: Smoking cessation. If you have recurrent chest pain contact M.D. or go to emergency room. Follow-up with outside machinist apprentice in 1-2 weeks Follow up with: BELGICA WALTER MD [Primary Care Provider] - 7 Days RETA ROBERSON MD [Staff Physician] - 14 Days Prescriptions: Nicotine [Habitrol] 14 mg TD DAILY #30 patch
== END 2019-08-26 16:31 | disposition home or self-care (01) | DRG 292 ==
LOC: ED 11:06 → 4A 18:08
PROVIDERS: ADMIT Internal Medicine; ATTEND Internal Medicine
DX: I11.0 Hypertensive heart disease with heart failure (principal); E66.2 Morbid (severe) obesity with alveolar hypoventilation; F17.213 Nicotine dependence, cigarettes, with withdrawal; R07.89 Other chest pain; I20.8 Other forms of angina pectoris; I50.33 Acute on chronic diastolic (congestive) heart failure; K21.9 Gastro-esophageal reflux disease without esophagitis; M19.90 Unspecified osteoarthritis, unspecified site; E11.40 Type 2 diabetes mellitus with diabetic neuropathy, unspecified; F32.9 Major depressive disorder, single episode, unspecified; E78.2 Mixed hyperlipidemia; J44.9 Chronic obstructive pulmonary disease, unspecified; Z82.49 Family history of ischemic heart disease and other diseases of the circulatory system; Z83.3 Family history of diabetes mellitus; Z88.1 Allergy status to other antibiotic agents; Z79.899 Other long term (current) drug therapy; Z68.38 Body mass index [BMI] 38.0-38.9, adult; Z71.6 Tobacco abuse counseling
CPT/HCPCS: 36415; 70450; 71046; 71275; 78452; 80053; 80061; 81001; 82962; 83690; 83735; 83880; 84484; 85025; 85379; 93005; 93010; 93017; 93306; 93970; 96374; 96375; 99406; G0378; A9270-GY; A9502; J2270; J2405; J2785; Q9967

== ENCOUNTER 2019-11-04 00:08 | Emergency (ER) | payer MEDICARE ==
[2019-11-04] MEDS ORDERED: MORPHINE 4 MG/1 ML INJ IM ONE (01:29)
[2019-11-04] MEDS ORDERED: ONDANSETRON 4 MG/2 ML INJ IM ONE (01:29)
--- NOTE | 2019-11-04 01:32 | Emergency Department Report ---
ED General Adult HPI - General Chief complaint: High BP Stated complaint: RIGHT SIDE FACE SWOLLEN Time Seen by Provider: 11/04/19 01:18 Source: patient, family Mode of arrival: Ambulatory Limitations: No Limitations - History of Present Illness Initial comments: Patient is 73 years old female with history of hypertension, diabetes and COPD. Patient presented to the ER with to complain. Patient stated that she is having a right facial swelling started all of a sudden this afternoon. Patient also stated that she found her blood pressure started to become high after the pain and the swelling started. Patient denied any recent injury or trauma. She denied any fever or chills. No nausea or vomiting. Severity scale (0 -10): 0 - Related Data Home Medications Medication Instructions Recorded Confirmed Last Taken AtorvaSTATin 10 mg PO DAILY 10/12/15 08/24/19 08/24/19 Cholecalciferol (Vitamin D3) 2,000 unit PO QDAY 10/12/15 08/24/19 08/20/19 [Vitamin D3 2,000 UNIT CAP] Docusate Sodium [Colace CAP] 100 mg PO BID 10/12/15 08/24/19 08/23/19 Lisinopril [Zestril TAB] 40 mg PO QDAY 10/12/15 08/24/19 08/24/19 Sertraline [Zoloft] 50 mg PO QDAY 10/12/15 08/24/19 08/23/19 amLODIPine 10 mg PO DAILY 10/12/15 08/24/19 08/24/19 glipiZIDE [glipiZIDE XL] 10 mg PO DAILY 10/12/15 08/24/19 08/24/19 Budesonide/Formoterol Fumarate 10.2 gm IH Q6H 08/24/19 08/24/19 08/23/19 [Symbicort 80-4.5 Mcg Inhaler] Chlorthalidone [Thalitone] 25 mg PO QDAY 08/24/19 08/24/19 08/24/19 Esomeprazole Magnesium [NexIUM] 40 mg PO QDAY 08/24/19 08/24/19 08/23/19 Linagliptin [Tradjenta] 5 mg PO QDAY 08/24/19 08/24/19 08/24/19 Losartan [Cozaar] 100 mg PO QDAY 08/24/19 08/24/19 08/24/19 Previous Rx's Medication Instructions Recorded Last Taken Type ALBUTEROL Inhaler (OR & NICU) 2 puff IH QID PRN #1 inhalation 11/24/18 08/24/19 Rx [ProAir HFA Inhaler] Nicotine [Habitrol] 14 mg TD DAILY #30 patch 08/26/19 Unknown Rx Allergies Allergy/AdvReac Type Severity Reaction Status Date / Time ampicillin AdvReac Itching Verified 10/09/15 19:02 ED Review of Systems ROS: Stated complaint: RIGHT SIDE FACE SWOLLEN Other details as noted in HPI Comment: All other systems reviewed and negative Constitutional: denies: chills, fever Respiratory: denies: cough, shortness of breath, SOB with exertion, SOB at rest, wheezing Cardiovascular: denies: chest pain, palpitations Gastrointestinal: denies: abdominal pain, nausea, vomiting, diarrhea, co nstipation, hematemesis, melena, hematochezia Genitourinary: denies: urgency Musculoskeletal: denies: back pain Neurological: denies: headache, weakness, numbness, paresthesias, confusion ED Past Medical Hx - Past Medical History Previous Medical History?: Yes Hx Hypertension: Yes Hx Diabetes: Yes Hx GERD: Yes Hx Psychiatric Treatment: Yes (depression) Hx COPD: Yes Additional medical history: Bronchitis. Vertigo. hyperlipidemia. osteoarthritis. neuropathy - Surgical History Past Surgical History?: Yes Additional Surgical History: stomach, Hysterectomy, C-Sec X2 - Social History Smoking Status: Former Smoker Substance Use Type: None - Medications Home Medications: Home Medications Medication Instructions Recorded Confirmed Last Taken Type AtorvaSTATin 10 mg PO DAILY 10/12/15 08/24/19 08/24/19 History Cholecalciferol (Vitamin D3) 2,000 unit PO QDAY 10/12/15 08/24/19 08/20/19 History [Vitamin D3 2,000 UNIT CAP] Docusate Sodium [Colace CAP] 100 mg PO BID 10/12/15 08/24/19 08/23/19 History Lisinopril [Zestril TAB] 40 mg PO QDAY 10/12/15 08/24/19 08/24/19 History Sertraline [Zoloft] 50 mg PO QDAY 10/12/15 08/24/19 08/23/19 History amLODIPine 10 mg PO DAILY 10/12/15 08/24/19 08/24/19 History glipiZIDE [glipiZIDE XL] 10 mg PO DAILY 10/12/15 08/24/19 08/24/19 History ALBUTEROL Inhaler (OR & NICU) 2 puff IH QID PRN #1 inhalation 11/24/18 08/24/19 08/24/19 Rx [ProAir HFA Inhaler] Budesonide/Formoterol Fumarate 10.2 gm IH Q6H 08/24/19 08/24/19 08/23/19 History [Symbicort 80-4.5 Mcg Inhaler] Chlorthalidone [Thalitone] 25 mg PO QDAY 08/24/19 08/24/19 08/24/19 History Esomeprazole Magnesium [NexIUM] 40 mg PO QDAY 08/24/19 08/24/19 08/23/19 History Linagliptin [Tradjenta] 5 mg PO QDAY 08/24/19 08/24/19 08/24/19 History Losartan [Cozaar] 100 mg PO QDAY 08/24/19 08/24/19 08/24/19 History Nicotine [Habitrol] 14 mg TD DAILY #30 patch 08/26/19 Unknown Rx ED Physical Exam - General Limitations: No Limitations General appearance: alert, in no apparent distress - Head Head exam: Present: atraumatic, other (right parotid gland swelling and tenderness.) - ENT ENT exam: Present: normal exam - Respiratory Respiratory exam: Present: normal lung sounds bilaterally - Cardiovascular Cardiovascular Exam: Present: regular rate, normal rhythm, normal heart sounds - GI/Abdominal GI/Abdominal exam: Present: soft, normal bowel sounds. Absent: distended, tenderness, guarding, rebound, rigid, organomegaly, mass, bruit, pulsatile mass, hernia - Extremities Exam Extremities exam: Present: normal inspection, full ROM, normal capillary refill. Absent: pedal edema, calf tenderness - Back Exam Back exam: Present: normal inspection, full ROM. Absent: CVA tenderness (R), CVA tenderness (L) - Neurological Exam Neurological exam: Present: alert, oriented X3, CN II-XII intact - Psychiatric Psychiatric exam: Present: normal mood - Skin Skin exam: Present: warm, intact, normal color ED Course Vital Signs 11/04/19 11/04/19 11/04/19 00:12 00:38 01:06 Temperature 122.0 F H 98.1 F 98.3 F Pulse Rate 82 86 73 Respiratory 18 18 20 Rate Blood Pressure 206/91 Blood Pressure 206/91 150/111 [Left] O2 Sat by Pulse 96 96 99 Oximetry 11/04/19 11/04/19 11/04/19 01:30 02:00 02:30 Temperature Pulse Rate 76 77 77 Respiratory 22 25 H 19 Rate Blood Pressure 163/86 163/86 166/85 Blood Pressure [Left] O2 Sat by Pulse 96 97 92 Oximetry 11/04/19 03:00 Temperature Pulse Rate 81 Respiratory 22 Rate Blood Pressure 163/86 Blood Pressure [Left] O2 Sat by Pulse 95 Oximetry ED Medical Decision Making - Radiology Data Radiology results: report reviewed - Medical Decision Making Patient is 73 years old female with history of hypertension, diabetes and COPD. Patient presented to the ER with to complain. Patient stated that she is having a right facial swelling started all of a sudden this afternoon. Patient also stated that she found her blood pressure started to become high after the pain and the swelling started. Patient denied any recent injury or trauma. She denied any fever or chills. No nausea or vomiting. CT facial showed acute parotitis. Patient blood pressure improved after pain medication. Patient given prescription for Naprosyn, tramadol and Zofran and advised to follow-up with her primary care physician in the next 2-3 days. Critical care attestation.: If time is entered above; I have spent that time in minutes in the direct care of this critically ill patient, excluding procedure time. ED Disposition Clinical Impression: Acute parotitis, Malignant hypertension Disposition: -01 TO HOME OR SELFCARE Is pt being admited?: No Condition: Stable Instructions: Hypertension (ED), Sialoadenitis (ED) Referrals: PRIMARY CARE, [Referring] - 3-5 Days
[2019-11-04 02:05] VITALS: BP 163/86
--- NOTE | 2019-11-04 02:24 | Cat Scan Report ---
CT of the facial bones INDICATION: Right facial swelling without trauma FINDINGS: Sinuses are clear with no sinusitis seen. There is no fracture identified. There is no orbi mark abnormality. No definite cellulitis. No abscess is seen. However there is slight induration invol ving the right parotid gland with minimal overlying skin induration. The left parotid gland is normal . There is no definite stone in the right parotid duct. No associated adenopathy. IMPRESSION: Right parotitis All CT scans at this location are performed using CT dose reduction for ALARA by means of automated e xposure control Signer Name: Denys Larry MD Signed: 11/04/2019 2:19 AM Workstation Name: [id number]
== END 2019-11-04 03:40 | disposition home or self-care (01) ==
LOC: ED 00:08
DX: K11.21 Acute sialoadenitis (principal); I10 Essential (primary) hypertension; E11.9 Type 2 diabetes mellitus without complications; K21.9 Gastro-esophageal reflux disease without esophagitis; F32.9 Major depressive disorder, single episode, unspecified; Z90.710 Acquired absence of both cervix and uterus; Z79.899 Other long term (current) drug therapy; Z88.1 Allergy status to other antibiotic agents
CPT/HCPCS: 70486; 93005; 93010; 96372; 99283; J2270; J2405

== ENCOUNTER 2022-04-16 16:29 | Emergency (ER) | payer MEDICARE ==
[2022-04-16] MEDS ORDERED: ONDANSETRON 4 MG/2 ML INJ IV ONE ×2 (16:59→20:30)
[2022-04-16] MEDS ORDERED: MORPHINE 2 MG/1 ML INJ IV ONE (16:59)
--- NOTE | 2022-04-16 16:59 | Emergency Department Report ---
HPI - General Chief Complaint: Back Pain/Injury Time Seen by Provider: 04/16/22 16:48 - HPI HPI: For the last week the patient has been experiencing some back pain that started in the front of her torso on the chest without any trauma. The patient has been there constantly on the chest and then it moved over to her the back. Now it hurts to move or breathe. She describes the pain as tearing like and movement and deep breathing makes it worse and nothing makes it better. She has not taken her medications for this. She has a history of high blood pressure type 2 diabetes and congestive heart failure. Denies nausea vomiting fever chills focal weakness numbness tingling headache or any other associated symptoms. ED Past Medical Hx - Past Medical History Hx Hypertension: Yes Hx Congestive Heart Failure: Yes Hx Diabetes: Yes Hx GERD: Yes Hx Psychiatric Treatment: Yes (depression) Hx COPD: Yes Additional medical history: Bronchitis. Vertigo. hyperlipidemia. osteoarthritis. neuropathy. Congestive heart failure - Surgical History Additional Surgical History: stomach, Hysterectomy, C-Sec X2 - Family History Family history: no significant - Social History Smoking Status: Former Smoker Substance Use Type: None - Medications Home Medications: Home Medications Medication Instructions Recorded Confirmed Last Taken Type AtorvaSTATin 10 mg PO DAILY 10/12/15 08/24/19 08/24/19 History Cholecalciferol (Vitamin D3) 2,000 unit PO QDAY 10/12/15 08/24/19 08/20/19 History [Vitamin D3 2,000 UNIT CAP] Docusate Sodium [Colace CAP] 100 mg PO BID 10/12/15 08/24/19 08/23/19 History Sertraline [Zoloft] 50 mg PO QDAY 10/12/15 08/24/19 08/23/19 History amLODIPine 10 mg PO DAILY 10/12/15 08/24/19 08/24/19 History glipiZIDE [glipiZIDE XL] 10 mg PO DAILY 10/12/15 08/24/19 08/24/19 History lisinopriL [Zestril TAB] 40 mg PO QDAY 10/12/15 08/24/19 08/24/19 History Albuterol Mdi (or & Nicu Only) 2 puff IH QID PRN #1 inhalation 11/24/18 08/24/19 08/24/19 Rx [ProAir HFA Inhaler] Budesonide/Formoterol Fumarate 10.2 gm IH Q6H 08/24/19 08/24/19 08/23/19 History [Symbicort 80-4.5 Mcg Inhaler] Chlorthalidone [Thalitone] 25 mg PO QDAY 08/24/19 08/24/19 08/24/19 History Esomeprazole Magnesium [NexIUM] 40 mg PO QDAY 08/24/19 08/24/19 08/23/19 History Linagliptin [Tradjenta] 5 mg PO QDAY 08/24/19 08/24/19 08/24/19 History Losartan [Cozaar] 100 mg PO QDAY 08/24/19 08/24/19 08/24/19 History Nicotine [Habitrol] 14 mg TD DAILY #30 patch 08/26/19 Unknown Rx Naproxen [Naprosyn] 500 mg PO BID #14 tablet 11/04/19 Unknown Rx Ondansetron [Zofran Odt] 4 mg PO Q8HR PRN #14 tab.rapdis 11/04/19 Unknown Rx traMADoL [Ultram 50 MG tab] 50 mg PO Q4HR PRN #14 tablet 11/04/19 Unknown Rx Naproxen 500 mg PO BID 10 Days #20 tab 04/16/22 Unknown Rx Oxycodone HCl/Acetaminophen 1 each PO Q6HR PRN 3 Days #12 tab 04/16/22 Unknown Rx [Percocet 7.5/325 mg] ED Review of Systems ROS: Stated complaint: BACK PAIN Other details as noted in HPI Other: All other systems reviewed and negative. Physical Exam - Physical Exam Physical Exam: Physical Exam: Constitutional: AAOX3. No acute distress. No diaphoresis. HENT: Normocephalic. Pupils equal and reactive. No throat edema or erythema. Neck: No neck rigidity or tenderness. Cardiovascular: Heart sounds: No murmur. Normal rate and regular rhythm. Pulses: Intact distal pulses. Lungs: No wheezing or rales. Chest wall: No tenderness. Abdominal: No distension. No mass/pulsatile mass. No abdominal tenderness, g uarding nor rebound. Musculoskeletal: Normal range of motion. No edema, No calf TTP. Skin: Warm and dry. Neurological: Alert and oriented to person, place, and time. Psychiatric: Mood and affect normal. Normal cognition and memory. Normal judgement. Vascular: The patient has equal normal bilateral radial pulses. Back: Patient has tenderness to palpation in the midline in the mid thoracic region as well as the parathoracic muscles which have spasm and are tender to palpation reproducing the patient's pain. ED Course - Reevaluation(s) Reevaluation #1: 04/16/22 21:48 The patient feels much more comfortable after the medicines with given her. Her cardiac enzymes are negative. We are waiting on the results of the CAT scan with IV contrast of the chest so we can decide whether she stays or goes but likely she will be going home with a diagnosis of musculoskeletal back pain. ED Medical Decision Making - Lab Data Result diagrams: 04/16/22 17:04 04/16/22 17:04 Critical care attestation.: If time is entered above; I have spent that time in minutes in the direct care of this critically ill patient, excluding procedure time. ED Disposition Clinical Impression: Musculoskeletal back pain Is pt being admited?: No Does the pt Need Aspirin: No Condition: Stable Prescriptions: Naproxen 500 mg PO BID 10 Days #20 tab Oxycodone HCl/Acetaminophen [Percocet 7.5/325 mg] 1 each PO Q6HR PRN 3 Days #12 tab PRN Reason: Pain Print Language: SOMALI
--- NOTE | 2022-04-16 17:35 | XRay Report ---
CHEST 1 VIEW INDICATION / CLINICAL INFORMATION: Chest Pain. FINDINGS: SUPPORT DEVICES: None. HEART / MEDIASTINUM: No significant abnormality. LUNGS / PLEURA: No significant pulmonary or pleural abnormality. No pneumothorax. ADDITIONAL FINDINGS: No significant additional findings. IMPRESSION: 1. No acute findings. Signer Name: Louis Mckeon MD Signed: 04/16/2022 5:30 PM Workstation Name: [id number]
[2022-04-16 17:54] LABS: Basophils # (Auto) 0.1 K/mm3 (0.0-0.1); Basophils % (Auto) 0.4 % (0.0-1.8); Eosinophils # (Auto) 0.1 K/mm3 (0.0-0.4); Eosinophils % (Auto) 0.6 % (0.0-4.3); Hematocrit 36.1 % (30.3-42.9); Hemoglobin 11.9 gm/dl (10.1-14.3); Lymphocytes # (Auto) 1.5 K/mm3 (1.2-5.4); Lymphocytes % (Auto) 12.1 % (13.4-35.0); Mean Corpuscular HGB Conc 33 % (30-34); Mean Corpuscular Volume 79 fl (79-97); Monocytes # (Auto) 0.8 K/mm3 (0.0-0.8); Monocytes % (Auto) 6.6 % (0.0-7.3); Platelet Count 366 K/mm3 (140-440); Red Blood Count 4.55 M/mm3 (3.65-5.03); Red Cell Distribution Width 17.8 % (13.2-15.2)
[2022-04-16 17:58] LABS: Alanine Aminotransferase 7 units/L (7-56); Albumin 3.7 g/dL (3.9-5); BUN/Creatinine Ratio 28; Blood Urea Nitrogen 25 mg/dL (7-17); Calcium 9.8 mg/dL (8.4-10.2); Hemolysis Index 4
[2022-04-16] MEDS ORDERED: MORPHINE 4 MG/1 ML INJ IV ONE ×2 (19:19→20:30)
[2022-04-16] MEDS ORDERED: DEXTROSE 50% IN WATER (25GM) 50 ML SYRINGE IV ONE (22:03)
--- NOTE | 2022-04-16 22:31 | Cat Scan Report ---
CT chest with contrast INDICATION : Back Pain midline radiating to the chest. TECHNIQUE: 100 mL of intravenous contrast administered. All CT scans at this location are performed using CT dose reduction for ALARA by means of automated exposure control. COMPARISON: CTA chest from 08/25/2019 FINDINGS: Heart and great vessels appear unremarkable with several calcified mediastinal/hilar lymph nodes. A few tiny scattered calcified granulomata are again noted with otherwise clear lungs. Limite d imaging of the upper abdomen shows nothing acute. Simple cysts are seen in the left kidney. Old mid line postoperative change noted. Degenerative changes in the spine with nothing acute. IMPRESSION: No acute abnormality. Clear lungs. Findings of old granulomatous disease in the chest Signer Name: Abdiel Faith MD Signed: 04/16/2022 10:27 PM Workstation Name: [id number]
[2022-04-17] MEDS ORDERED: MORPHINE 2 MG/1 ML INJ ONE (00:27)
[2022-04-17 03:07] VITALS: BP 159/79
== END 2022-04-17 03:08 | disposition home or self-care (01) ==
LOC: ED 16:29
DX: M54.9 Dorsalgia, unspecified (principal); I11.0 Hypertensive heart disease with heart failure; I50.9 Heart failure, unspecified; E11.9 Type 2 diabetes mellitus without complications; K21.9 Gastro-esophageal reflux disease without esophagitis; F32.A Depression, unspecified; J44.1 Chronic obstructive pulmonary disease with (acute) exacerbation; Z87.891 Personal history of nicotine dependence
CPT/HCPCS: 36415; 71045; 71260; 80053; 82962; 84484; 85025; 96374; 96375; 99284; J2270; J3490; Q9967